=== PATIENT | female | born 1970 | race Caucasian/White ===

== ENCOUNTER 2023-06-01 08:35 | Day surgery (SDC) | payer OTHER, SELFPAY ==
[2023-06-01 08:10] VITALS: BP 125/66
[2023-06-01 08:15] VITALS: BMI 31.4
[2023-06-01 08:21] LABS: Glucose - Point of Care 148 mg/dl (70-99)
[2023-06-01 08:35] VITALS: BMI 31.4
[2023-06-01 10:45] VITALS: BP 118/62
[2023-06-01 11:00] VITALS: BP 117/70
[2023-06-01 11:15] VITALS: BP 129/65
== END 2023-06-01 11:30 | disposition home or self-care (01) ==
LOC: SDS 08:35
PROVIDERS: ATTENDING PHYSICIAN Internal Medicine Gastroenterology; FAMILY PHYSICIAN Family Medicine
DX: Z12.11 Encounter for screening for malignant neoplasm of colon (principal); D12.0 Benign neoplasm of cecum; D12.3 Benign neoplasm of transverse colon; K63.5 Polyp of colon; K62.1 Rectal polyp; R19.7 Diarrhea, unspecified; K64.8 Other hemorrhoids; K29.70 Gastritis, unspecified, without bleeding; K22.89 Other specified disease of esophagus; K31.89 Other diseases of stomach and duodenum; R13.10 Dysphagia, unspecified
CPT/HCPCS: 45385; 45380; 43239; 88305; 82962; 88342; A9589

== ENCOUNTER → 2023-11-14 12:02 | Outpatient (REF) | payer OTHER, SELFPAY | LOC: WDC 12:02 | PROVIDERS: ATTENDING PHYSICIAN Family Medicine | DX: Z12.31 Encounter for screening mammogram for malignant neoplasm of breast (principal) | CPT/HCPCS: 77063; 77067 ==

== ENCOUNTER → 2023-11-23 10:06 | Outpatient (REF) | payer OTHER, SELFPAY | LOC: WDC 10:06 | PROVIDERS: ATTENDING PHYSICIAN Family Medicine | DX: R92.8 Other abnormal and inconclusive findings on diagnostic imaging of breast (principal) | CPT/HCPCS: 76642 ==

== ENCOUNTER → 2024-10-24 12:49 | Outpatient (REF) | payer OTHER, SELFPAY | LOC: HWRAD 12:49 | PROVIDERS: ATTENDING PHYSICIAN Family Medicine | DX: R33.9 Retention of urine, unspecified (principal) | CPT/HCPCS: 76770 ==

== ENCOUNTER 2024-12-09 18:56 | Emergency (ER) | payer OTHER, SELFPAY ==
[2024-12-09] VITALS (7 sets, daily range): BP systolic 124–140; BP diastolic 50–75; BMI 28.7
[2024-12-09 19:39] LABS: Blood Urea Nitrogen 16 mg/dl (7-17); Calcium 9.8 mg/dl (8.4-10.2); Carbon Dioxide 25 mmol/L (22-30); Chloride 105 mmol/L (98-107); Glucose 113 mg/dl (70-99); Sodium 137 mmol/L (135-145); eGFR > 60.00
[2024-12-09 19:46] LABS: Potassium 4.0 mmol/L (3.5-5.1)
[2024-12-09 19:56] LABS: Depakane 88.6 ug/ml (50.0-120.0)
[2024-12-09 20:05] LABS: Hematocrit 39.5 % (37.0-47.0); Hemoglobin 13.5 g/dL (12.0-16.0); Mean Corp Hgb Conc. 34.2 g/dL (33.0-37.0); Mean Corpuscular Volume 88.0 fL (81.0-99.0); Nucleated Red Blood Cells % 0 %; Platelet Count 293 10^3/uL (130-400); Red Cell Dist. Width 13.5 % (11.5-14.5)
[2024-12-09] MEDS: ZOFRAN 4 MG IV (20:45)
[2024-12-10] VITALS: BP 118/62
[2024-12-10 01:00] VITALS: BP 110/58
--- NOTE | 2024-12-10 01:44 | ED.GENMED ---
History of Present Illness
General
Chief Complaint: Seizure
Source: patient
Time Seen by Provider: 12/09/24 19:46
History of Present Illness
History of Present Illness:
Note:
CHIEF COMPLAINT(S)
Seizure episode
HISTORY OF PRESENT ILLNESS
The patient is a 54-year-old female with a long-standing history of seizures since the age of [age], despite not experiencing any for the past 17 years. She had a seizure on November 18 and reported experiencing two seizures today. The first seizure
occurred at approximately 1:00 PM and lasted about three minutes and 15 seconds. The second seizure took place at 5:50 PM, but its duration was not specifically known. These episodes have been associated with stress, as she is managing the care of
parents with Alzheimer�s, leading to significant emotional strain. The patient was recently transitioned from Keppra, which was initially prescribed to manage her essential tremors, back to her previous anticonvulsant, Depakote, one week ago. The
patient has previous experience with Depakote, taking 1500 mg of the extended-release form once daily.
Post-seizure, she experiences nausea and headaches. The attending physician plans to order a head CT scan for further evaluation. The patient also reports feeling persistently tired after seizures and states she typically experiences generalized
tonic seizures. Patient admits she has been taking her old prescription and is not sure if her medications are . She did fill her new prescription now
PAST MEDICAL AND SURIGICAL HISTORY
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
ADDITIONAL HISTORY OBTAINED FROM SOURCES OTHER THAN THE PATIENT
The patients children witnessed the seizures. The patient is accompanied by a neighbor for support during the visit.
SOCIAL DETERMINANTS AFFECTING HEALTH
The patient is dealing with substantial caregiving stress related to her parents, both of whom have Alzheimers disease and have recently been moved into an assisted living situation against their wishes.
ALLERGIES
Codeine and hay fever.
MEDICATIONS
- Depakote, 1500 mg extended-release, once daily.
- Fluoxetine (dosage not specified).
- Insulin (type and dosage not specified).
- Oxygen.
PHYSICAL EXAM
General: Alert, no acute distress.
Skin: Warm, dry.
Head: Normocephalic, atraumatic.
Neck: Supple, trachea midline.
Eye, Ears, Nose, Mouth, and Throat: Oral mucosa moist. Pupils equal, round, reactive to light.
Cardiovascular: Normal peripheral perfusion, No edema.
Respiratory: Respirations are non-labored, no respiratory distress observed.
Gastrointestinal: Abdomen nondistended.
Back: Normal range of motion, normal alignment.
Musculoskeletal: Central tremor affecting bilateral extremities noted, normal range of motion, normal strength. No pronator drift.
Neurological: Alert and oriented to person, place, time, and situation. Cranial nerves are intact. No focal neurological deficit observed.
Psychiatric: Cooperative, appropriate mood & affect.
PLAN
1. Order a CT scan of the head to further investigate post-seizure symptoms and headache.
2. Conduct an EKG to assess cardiac function and ensure its safe to administer Zofran, considering potential for interaction with other medications.
3. Provide appropriate antiemetic medication to address nausea, considering alternatives to Zofran if EKG results indicate risk.
DIFFERENTIAL DIAGNOSIS
The Differential Diagnosis includes, but is not limited to:
1. Epilepsy
2. Cerebral tumor or lesion
3. Stroke or transient ischemic attack
4. Electrolyte imbalance
5. Medication non-compliance or withdrawal effects
6. Infection leading to fever (such as meningitis or encephalitis)
7. Alcohol withdrawal
8. Hypoglycemia
9. Cardiac arrhythmias
10. Psychological stress-induced or psychosomatic factors affecting seizure threshold
EKG
My independent EKG interpretation is:
- Heart rate: 89 beats per minute
- Rhythm: Normal sinus rhythm
- [place]: Normal
- SD interval: Normal
- QRS duration: Normal
- QT interval: Normal
- Abnormalities: None observed
CARE-UPDATE
12/09/24 - 23:46
Patient reports no further seizure episodes. She admitted to using her old Depakote and is uncertain about its expiration status. Current Depakote level needs assessment. Plan to consult with neurology for further guidance.
Disposition:
SUMMARY OF ENCOUNTER
The patient, a 54-year-old female with a history of seizures, was seen in the emergency department due to a recent seizure episode following a long period of being seizure-free. She experienced two seizures today, leading to her visit. Discussed
with neurology, it was advised that the patient be managed on an outpatient basis, as there were no indications for immediate inpatient intervention. Complete blood count showed elevated white blood cell count likely due to recent seizure activity.
Basic metabolic panel and procalcitonin levels were normal. A CT scan of the head interpreted by radiology was normal, and the EKG and neurological examination were unremarkable.
DISPOSITION
Discharge.
MANAGEMENT OF THE PATIENTS CARE WAS DISCUSSED WITH
The case was discussed with the neurology team, who advised that outpatient management was appropriate with no changes to her current antiepileptic regimen.
PLAN
1. Continue current antiepileptic medication as prescribed.
2. Arrange a close follow-up with her neurologist to monitor her condition and adjust treatment as necessary.
3. Return to the emergency department if symptoms progress or new symptoms develop.
INDEPENDENT REVIEW OF LABS AND INTERPRETATION OF TESTS
- My independent review of hemoglobin is normal.
- My independent review of CBC shows elevated white blood cell count at 15.9, likely due to recent seizure activity.
- My independent review of BMP and procalcitonin levels are normal.
- My independent CT scan interpretation of the head shows no abnormalities.
- My independent EKG interpretation shows normal sinus rhythm with no observed abnormalities.
FOLLOW-UP INSTRUCTIONS
The patient is advised to have a close follow-up with her neurologist and to return if there is any progression of symptoms or new developments.
MEDICAL DECISION MAKING
-Number and Complexity of Problems Addressed: Chronic conditions affecting care include seizure disorder. Differential diagnoses include epilepsy, cerebral tumor or lesion, stroke or TIA, electrolyte imbalance, medication non-compliance or
withdrawal effects, infection, alcohol withdrawal, hypoglycemia, cardiac arrhythmias, and stress-induced factors.
-Data:
Category 1
My independent interpretation of EKG and CT head confirms normal findings.
Category 2
Clinical information was obtained from the patients children who witnessed seizure episodes.
-Risk:
Prescription medication management was considered but no changes were made as per neurologys recommendations. Given the patients stable condition, outpatient management was deemed safe, provided there is close follow-up with her neurologist. Care
was significantly affected by social determinants of health, specifically stress due to caregiving responsibilities.
DIAGNOSIS
- Epilepsy, intractable, without status epilepticus (G40.919)
- Seizure disorder, not intractable, without status epilepticus (G40.309)
- Coronary artery disease (I25.10)
Past History
Past History
ED Past Medical History: Hypercholesterolemia and Seizures
ED Past Surgical History: Orthopedic
Social History
Tobacco: Smoker
Living: with family
Employment: Employed
Phy Exam
Physical Exam
Physical Exam:
.
Course
Orders/Labs/Results
Orders:
Orders
12/09/24 19:14
Basic Metabolic Panel Urgent
Valproic Acid Level [Depakane] Urgent
12/09/24 19:57
Complete Blood Count/With Diff Urgent
12/09/24 20:29
CT Head W/o Iv Contrast Urgent
Comment:
Reason For Exam: ZIMMERMAN, vomiting, Seizure...h/o seizures
12/09/24 20:31
Electrocardiogram (*1) Urgent
Reason for Study: QTc Monitoring
EKG- Treatment ONCE
12/09/24 20:40
Ondansetron Injectable [Zofran] 4 mg IV NOW STA
Abnormal Lab Results
12/09/24 12/09/24
19:14 19:57
WBC 15.9 H 10^3/uL
(4.8-10.8)
Abs Immat Gran (auto) 0.1 H 10^3/uL
(0-0.05)
Absolute Neuts (auto) 12.0 H 10^3/uL
(1.4-6.5)
Absolute Monos (auto) 1.3 H 10^3/uL
(0.1-0.6)
Immature Gran % 0.6 H %
(0-0.5)
Neutrophils % 75.3 H %
(42.2-75.2)
Lymphocytes % 14.2 L %
(20.5-51.1)
Creatinine 0.4 L mg/dL
(0.6-1.0)
Glucose 113 H mg/dl
(70-99)
12/09/24 19:57
12/09/24 19:14
Vital Signs
Initial and Last Documented VS:
Initial Vital Signs
Temp Pulse Resp BP Pulse Ox
98.7 F 94 18 128/75 98
12/09/24 19:01 12/09/24 19:01 12/09/24 19:01 12/09/24 19:01 12/09/24 19:01
Last Documented Vital Signs
Temp Pulse Resp BP Pulse Ox
98.7 F 98 17 110/58 97
12/09/24 19:01 12/10/24 01:30 12/09/24 22:35 12/10/24 01:00 12/10/24 01:30
*Pulse Oximetry
SaO2: 97
Oxygen Mode of Delivery: Room air
Patient hypoxic: no
*Critical Care Note
Total Time (30-74mins, 75-104mins- exclusive of procedures): Not Applicable
ED Attending Note
-
Portions of this chart may have been created with voice recognition software.� Occasional wrong word or��sound alike� substitutions may have occurred due to the inherent limitations of voice recognition software.
Discharge Plan
Departure
Patient Disposition: Home (Routine Discharge)
Date of Disposition: 12/10/24
Time of Disposition: 01:45
Patient with high blood pressure during this ER visit?: No
Discharge Problem:
Seizure
Instructions: Seizures, Adult (DC)
Prescriptions:
No Action
metformin 500 mg Tablet
500 mg PO BID
atorvastatin 10 mg Tablet
10 mg PO DAILY
divalproex 500 mg Tablet Extended Release 24 Hr
500 mg PO DAILY
divalproex 500 mg Tablet Extended Release 24 Hr
1,000 mg PO HS
omeprazole 20 mg Capsule,Delayed Release(Dr/Ec)
20 mg PO DAILY
escitalopram oxalate 10 mg Tablet
10 mg PO DAILY
Levemir FlexPen 100 unit/mL (3 mL) Insulin Pen
18 unit SC HS
PreserVision AREDS 2 Plus MV 200 mcg-15 mcg- 5 mg-1 mg Capsule
2 cap PO DAILY
Referrals:
UNKNOWN - PT NOT,INTERVIEWE [Family Provider]
Activity Restrictions/Additional Instructions:
Please continue your seizure medications with your new prescription. Please see your neurologist in the next 2 to 3 days for follow-up and reevaluation. Return immediately for intractable seizures, fevers, neck pain, intractable vomiting or any
other concerns
Interventions
Interventions:
*Risk Screen - Suicide Last Done: 12/09/24 19:01
*General Assessment Last Done: 12/09/24 19:43
*Neglect/Abuse Screening Last Done: 12/09/24 19:43
*ED- Fall Risk Assessment Last Done: 12/09/24 19:43
*ED COVID-19 Vaccine History Last Done: 12/09/24 19:43
ED- Cardiac Assessment Last Done: 12/09/24 19:43
ED- Neurological Assessment Last Done: 12/09/24 19:43
ED- Pulmonary Assessment Last Done: 12/09/24 19:43
Discharge Date and Time
Print Language: NIGERIAN
== END 2024-12-10 02:17 | disposition home or self-care (01) ==
LOC: EMR 18:56
PROVIDERS: Emergency Medicine; EMERGENCY PHYSICIAN Emergency Medicine
DX: G40.919 Epilepsy, unspecified, intractable, without status epilepticus (principal); E78.00 Pure hypercholesterolemia, unspecified; I25.10 Atherosclerotic heart disease of native coronary artery without angina pectoris; F17.200 Nicotine dependence, unspecified, uncomplicated; Z79.899 Other long term (current) drug therapy; Z88.5 Allergy status to narcotic agent
CPT/HCPCS: 96374; 99284; 70450; 80048; 80164; 85025; 93005